=== PATIENT | female | born 1995 | race Caucasian/White ===

== ENCOUNTER 2018-10-06 20:37 | Emergency (ER) | payer OTHER ==
[2018-10-06] MEDS ORDERED: SODIUM CHLORIDE 0.9% 500 ML 500 ML IV STA (23:28)
[2018-10-06] MEDS ORDERED: KETOROLAC 30 MG/ML 1 ML VIAL IVP STA (23:28)
[2018-10-06] MEDS ORDERED: ONDANSETRON 4 MG/2 ML VIAL IVP STA (23:28)
[2018-10-06 23:47] LABS: Basophils % (A) 0 %; Eosinophils # (A) 0.2 k/uL (0-0.7); Eosinophils % (A) 2 %; HCT 44.7 % (34.0-46.0); HGB 15.5 gm/dL (11.4-16.0); Lymphocytes # (A) 2.2 k/uL (1.0-4.8); Lymphocytes % (A) 23 %; MCH 31.5 pg (25.0-35.0); MCHC 34.7 g/dL (31.0-37.0); MCV 90.8 fL (80.0-100.0); Mean Platelet Volume 8.1; Monocytes # (A) 0.5 k/uL (0-1.0); Monocytes % (A) 6 %; Neutrophils # (A) 6.1 k/uL (1.3-7.7); Neutrophils % (A) 66 %; Platelet Count 170 k/uL (150-450); RBC 4.92 m/uL (3.80-5.40); RDW 12.4 % (11.5-15.5); WBC 9.2 k/uL (3.8-10.6)
[2018-10-06 23:50] LABS: Appearance,Urine Cloudy (Clear); Bilirubin,Urine Negative (Negative); Blood,Urine Negative (Negative); Color,Urine Yellow; Glucose,Urine (UA) Negative (Negative); Ketones,Urine Negative (Negative); Leukocyte Esterase,Urine Large (Negative); Mucus,Urine Moderate /hpf; Nitrite,Urine Negative (Negative); Protein,Urine Trace (Negative); RBC,Urine 2 /hpf (0-5); Specific Gravity,Urine 1.027 (1.001-1.035); Squamous Epithelial Cell,Urine 6 /hpf (0-4); WBC,Urine 34 /hpf (0-5)
--- NOTE | 2018-10-06 23:52 | ED ---
Abdominal Pain HPI - General Chief Complaint: Abdominal Pain Stated Complaint: abd pain Time Seen by Provider: 10/06/18 23:18 Source: patient, RN notes reviewed, old records reviewed Mode of arrival: ambulatory Limitations: no limitations - History of Present Illness Initial Comments: Patient is a 23 year old female, with CC of abdominal pain. Patient states she has been unable to have a bowel movement for the last 5 days. She has been vomiting every time she eats. She complains of lower abdominal pain. - Related Data Home Medications Medication Instructions Recorded Confirmed Aspirin EC [Ecotrin] 325 mg PO DAILY PRN 10/06/18 10/06/18 Bismuth Subsalicylate 262 mg PO QID PRN 10/06/18 10/06/18 [Pepto-Bismol] Calcium Carbonate [Tums] 500 mg PO BID PRN 10/06/18 10/06/18 Previous Rx's Medication Instructions Recorded Famotidine [Pepcid] 20 mg PO BID #20 tablet 10/07/18 Nitrofurantoin Monohyd/M-Cryst 100 mg PO Q12HR #14 cap 10/07/18 [Macrobid] Ondansetron Odt [Zofran Odt] 4 mg PO Q8HR PRN #12 tab 10/07/18 Allergies Allergy/AdvReac Type Severity Reaction Status Date / Time No Known Allergies Allergy Verified 10/06/18 23:18 Review of Systems ROS Statement: Those systems with pertinent positive or pertinent negative responses have been documented in the HPI. ROS Other: All systems not noted in ROS Statement are negative. Past Medical History Past Medical History: No Reported History History of Any Multi-Drug Resistant Organisms: None Reported Past Surgical History: Orthopedic Surgery Additional Past Surgical History / Comment(s): Patient had surgery on her right leg after breaking this in first grade. Past Anesthesia/Blood Transfusion Reactions: No Reported Reaction Past Psychological History: No Psychological Hx Reported Smoking Status: Current every day smoker Past Alcohol Use History: None Reported Past Drug Use History: None Reported - Past Family History Mother Family Medical History: Hypertension General Exam - General Exam Comments Initial Comments: Well appearing 23 year old female, no distress. Limitations: no limitations General appearance: alert, in no apparent distress Head exam: Present: atraumatic, normocephalic, normal inspection Eye exam: Present: normal appearance, PERRL, EOMI. Absent: scleral icterus, conjunctival injection, periorbital swelling ENT exam: Present: normal exam, mucous membranes moist Neck exam: Present: normal inspection. Absent: tenderness, meningismus, lymphadenopathy Respiratory exam: Present: normal lung sounds bilaterally. Absent: respiratory distress, wheezes, rales, rhonchi, stridor Cardiovascular Exam: Present: regular rate, normal rhythm, normal heart sounds. Absent: systolic murmur, diastolic murmur, rubs, gallop, clicks GI/Abdominal exam: Present: soft, tenderness (LLQ suprapubic tenderness. ), normal bowel sounds. Absent: distended, guarding, rebound, rigid Extremities exam: Present: normal inspection, full ROM, normal capillary refill. Absent: tenderness, pedal edema, joint swelling, calf tenderness Back exam: Present: normal inspection Neurological exam: Present: alert, oriented X3, CN II-XII intact Psychiatric exam: Present: normal affect, normal mood Course Vital Signs 10/06/18 10/06/18 10/07/18 20:57 23:50 00:48 Temperature 98.3 F 98.4 F Pulse Rate 69 69 72 Respiratory 20 18 16 Rate Blood Pressure 124/79 121/74 120/90 O2 Sat by Pulse 100 100 100 Oximetry Medical Decision Making - Medical Decision Making 23 year old female with vomiting, constipation for 5 days. She has suprapubic tenderness. Labs obtained, and KUB was reviewed. Labs were unermarkable. She does have evidence of UTI. No signs of obstruction. Patient feels better after IV fluids. Will DC with abx for UTI, pepcid and zofran for gastritis. Also given mag citrate to take come to promote bowel movement. Discussed close follow up with PCP. - Lab Data Result diagrams: 10/06/18 23:38 10/06/18 23:38 Lab Results 10/06/18 10/06/18 10/06/18 Range/Units 23:38 23:38 23:38 WBC (3.8-10.6) k/uL RBC (3.80-5.40) m/uL Hgb (11.4-16.0) gm/dL Hct (34.0-46.0) % MCV (80.0-100.0) fL MCH (25.0-35.0) pg MCHC (31.0-37.0) g/dL RDW (11.5-15.5) % Plt Count (150-450) k/uL Neutrophils % % Lymphocytes % % Monocytes % % Eosinophils % % Basophils % % Neutrophils # (1.3-7.7) k/uL Lymphocytes # (1.0-4.8) k/uL Monocytes # (0-1.0) k/uL Eosinophils # (0-0.7) k/uL Basophils # (0-0.2) k/uL PT (9.0-12.0) sec INR (<1.2) APTT (22.0-30.0) sec Sodium 141 (137-145) mmol/L Potassium 4.0 (3.5-5.1) mmol/L Chloride 105 (98-107) mmol/L Carbon Dioxide 26 (22-30) mmol/L Anion Gap 10 mmol/L BUN 13 (7-17) mg/dL Creatinine 0.75 (0.52-1.04) mg/dL Est GFR (CKD-EPI)AfAm >90 (>60 ml/min/1.73 sqM) Est GFR (CKD-EPI)NonAf >90 (>60 ml/min/1.73 sqM) Glucose 82 (74-99) mg/dL Calcium 9.1 (8.4-10.2) mg/dL Total Bilirubin 1.0 (0.2-1.3) mg/dL AST 21 (14-36) U/L ALT 29 (9-52) U/L Alkaline Phosphatase 71 (38-126) U/L Total Protein 7.5 (6.3-8.2) g/dL Albumin 4.6 (3.5-5.0) g/dL Amylase 44 (30-110) U/L Lipase 55 (23-300) U/L Urine Color Yellow Urine Appearance Cloudy H (Clear) Urine pH 6.0 (5.0-8.0) Ur Specific [place] 1.027 (1.001-1.035) Urine Protein Trace H (Negative) Urine Glucose (UA) Negative (Negative) Urine Ketones Negative (Negative) Urine Blood Negative (Negative) Urine Nitrite Negative (Negative) Urine Bilirubin Negative (Negative) Urine Urobilinogen 3.0 (<2.0) mg/dL Ur Leukocyte Esterase Large H (Negative) Urine RBC 2 (0-5) /hpf Urine WBC 34 H (0-5) /hpf Ur Squamous Epith Cells 6 H (0-4) /hpf Urine Mucus Moderate H (None) /hpf Urine HCG, Qual Not Detected (Not Detectd) 10/06/18 10/06/18 Range/Units 23:38 23:38 WBC 9.2 (3.8-10.6) k/uL RBC 4.92 (3.80-5.40) m/uL Hgb 15.5 (11.4-16.0) gm/dL Hct 44.7 (34.0-46.0) % MCV 90.8 (80.0-100.0) fL MCH 31.5 (25.0-35.0) pg MCHC 34.7 (31.0-37.0) g/dL RDW 12.4 (11.5-15.5) % Plt Count 170 (150-450) k/uL Neutrophils % 66 % Lymphocytes % 23 % Monocytes % 6 % Eosinophils % 2 % Basophils % 0 % Neutrophils # 6.1 (1.3-7.7) k/uL Lymphocytes # 2.2 (1.0-4.8) k/uL Monocytes # 0.5 (0-1.0) k/uL Eosinophils # 0.2 (0-0.7) k/uL Basophils # 0.0 (0-0.2) k/uL PT 10.3 (9.0-12.0) sec INR 1.0 (<1.2) APTT 26.2 (22.0-30.0) sec Sodium (137-145) mmol/L Potassium (3.5-5.1) mmol/L Chloride (98-107) mmol/L Carbon Dioxide (22-30) mmol/L Anion Gap mmol/L BUN (7-17) mg/dL Creatinine (0.52-1.04) mg/dL Est GFR (CKD-EPI)AfAm (>60 ml/min/1.73 sqM) Est GFR (CKD-EPI)NonAf (>60 ml/min/1.73 sqM) Glucose (74-99) mg/dL Calcium (8.4-10.2) mg/dL Total Bilirubin (0.2-1.3) mg/dL AST (14-36) U/L ALT (9-52) U/L Alkaline Phosphatase (38-126) U/L Total Protein (6.3-8.2) g/dL Albumin (3.5-5.0) g/dL Amylase (30-110) U/L Lipase (23-300) U/L Urine Color Urine Appearance (Clear) Urine pH (5.0-8.0) Ur Specific [place] (1.001-1.035) Urine Protein (Negative) Urine Glucose (UA) (Negative) Urine Ketones (Negative) Urine Blood (Negative) Urine Nitrite (Negative) Urine Bilirubin (Negative) Urine Urobilinogen (<2.0) mg/dL Ur Leukocyte Esterase (Negative) Urine RBC (0-5) /hpf Urine WBC (0-5) /hpf Ur Squamous Epith Cells (0-4) /hpf Urine Mucus (None) /hpf Urine HCG, Qual (Not Detectd) - Radiology Data Radiology results: report reviewed Normal KUB. No sign of obstruction. Disposition Clinical Impression: UTI (urinary tract infection), Gastritis Clinical Impression: (Ruled Out): Inflammatory bowel disease Disposition: HOME SELF-CARE Condition: Good Instructions: Urinary Tract Infection in Women (ED) Additional Instructions: Patient has to take antibiotics as prescribed. Follow-up with PCP. Clear liquid diet for 2 days. Return to emergency department if any alarming signs or symptoms occur. Prescriptions: Famotidine [Pepcid] 20 mg PO BID #20 tablet Nitrofurantoin Monohyd/M-Cryst [Macrobid] 100 mg PO Q12HR #14 cap Ondansetron Odt [Zofran Odt] 4 mg PO Q8HR PRN #12 tab PRN Reason: Nausea Is patient prescribed a controlled substance at d/c from ED?: No Referrals: None,Stated [Primary Care Provider] - 1-2 days Ni Balderrama MD [STAFF PHYSICIAN] - 1-2 days Time of Disposition: 00:22
[2018-10-06 23:56] LABS: ALT 29 U/L (9-52); AST 21 U/L (14-36); Albumin 4.6 g/dL (3.5-5.0); Alkaline Phosphatase 71 U/L (38-126); Amylase 44 U/L (30-110); Anion Gap 10 mmol/L; Blood Urea Nitrogen 13 mg/dL (7-17); Calcium 9.1 mg/dL (8.4-10.2); Carbon Dioxide 26 mmol/L (22-30); Chloride 105 mmol/L (98-107); Glucose 82 mg/dL (74-99); Lipase 55 U/L (23-300); Sodium 141 mmol/L (137-145); Total Protein 7.5 g/dL (6.3-8.2)
[2018-10-07 00:04] LABS: Partial Thromboplastin Time 26.2 sec (22.0-30.0); Prothrombin Time 10.3 sec (9.0-12.0)
--- NOTE | 2018-10-07 00:06 | XR ---
EXAMINATION TYPE: XR KUB DATE OF EXAM: 10/06/2018 COMPARISON: NONE HISTORY: Abdominal pain TECHNIQUE: 2 views FINDINGS: The lung bases are clear. Bowel gas pattern is normal. There is no sign of intestinal obstr uction or pneumoperitoneum. Fecal pattern is normal. There is no evidence of a mass. There are no pat hologic calcifications over the kidneys. IMPRESSION: Nonacute abdomen.
[2018-10-07] MEDS ORDERED: MAGNESIUM CITRATE 296 ML BOTTLE PO ONE (00:25)
[2018-10-07 00:49] VITALS: BP 120/90; PULSE 72; RESP 16; TEMP 98.4
== END 2018-10-07 00:48 | disposition home or self-care (01) ==
LOC: EC 20:37
DX: K29.70 Gastritis, unspecified, without bleeding (principal); N39.0 Urinary tract infection, site not specified; K59.00 Constipation, unspecified; F17.200 Nicotine dependence, unspecified, uncomplicated
CPT/HCPCS: 36415; 80053; 82150; 83690; 85025; 85610; 85730; 81001; 81025; 74018; 99284; 96374; 96375; J2405; J1885

== ENCOUNTER 2023-05-25 19:49 | Outpatient (CLI) | payer BC, OTHER ==
[2023-05-25 20:55] VITALS: BP 126/78; PULSE 87; RESP 16; TEMP 98.5
--- NOTE | 2023-05-26 07:02 | P.MSEPDOC ---
Presenting Problems - Arrival Data Date of Arrival on Unit: 05/25/23 Time of Arrival on Unit: 19:49 Mode of Transport: Wheelchair - Complaint OB-Reason for Admission/Chief Complaint: Other Comment: Pt presents to triage with complaints of. swelling in hands and face. Pt is DOM due to recently. moving to [place] from [place]. Pt did receive. prental care in [place] however has not been able. to find a provider due to being "high risk for GDM". per pt. Medical History - Information : 4 Para: 2 Term: 2 : 0 Abortions: Spontaneous or Elective: 1 Number of Living Children: 2 - Gestational Age Gestational Age by EMILE (wks/days): 38 Weeks and 0 Days - History Complications: GDM Review of Systems - Review of Systems Constitutional: No problems Breast: No problems ENT: No problems Cardiovascular: No problems Respiratory: No problems Gastrointestinal: No problems Genitourinary: No problems Musculoskeletal: No problems Neurological: No problems Skin: No problems Vital Signs - Temperature Temperature: 98.5 F Temperature Source: Oral - Pulse Pulse Oximetery Pulse Rate: 87 Pulse Assessment Method: Pulse Oximetry - Respirations Respiratory Rate: 16 Oxygen Delivery Method: Room Air O2 Sat by Pulse Oximetry: 98 - Blood Pressure Right Arm Blood Pressure: 126/78 Blood Pressure Mean: 94 Medical Screen Scoring - Cervical Exam Dilation (cm): 1 Effacement (%): 50 Station: -2 Membranes: Intact - Uterine Contractions Intensity: Mild Resting: Soft to palpation - Assessment - Baby A Baseline FHR: 135 Heart Rate - NICHD Category: Category I (Normal) NST: Reactive Physician Notification - Physician Notified Physician Notified Date: 05/25/23 Physician Notified Time: 20:25 Physician: Brayan Melara New Order Received: Yes - Notification Comment Comment: Report given to Dr. Melara regarding DOM. pt, reported on vs, G/P, GA, history of preeclampsia. with previous , GDM, reactive NST, cervical. exam, physical exam. Did previously have care in [place]. but has recently moved and has not been able to find. a provider in [place]. Orders to discharge home. Maternal Triage Index - Maternal Triage Index Presenting for scheduled procedure w/no complaint: No - Stat/Priority 1 Stat Priority 1: No - Urgent/Priority 2 Urgent Priority 2: No - Prompt/Priority 3 Prompt Priority 3: No - Non-Urgent/Priority 4 Non-Urgent Priority 4: Yes Criteria Met for Priority 4: Pt presents to triage with complaints of. swelling in hands and face. Pt is DOM due to recently. moving to [place] from [place]. Pt did receive. prental care in [place] however has not been able. to find a provider due to being "high risk for GDM". per pt. Disposition - Disposition OB Disposition: Discharge to home Discharge Date: 05/25/23 Discharge Time: 20:30 I agree with the RN Medical Screening Exam: Yes Case reviewed; plan agreed upon as documented in EMR&OBIX.: Yes Diagnosis: RELATED CONDITIONS, UNSPECIFIED, THIRD TRIMESTER (Patient presents to labor and delivery with complaints of swelling in her hands and feet. Apparently the swelling has been mild but she had concerns about preeclampsia. She is a 27-year-old 4 para 2 female 38 weeks gestation is had care in [place] however has not had care here. Blood pressures are normal 120s over 70s. heart tones are category 1. Patient's cervix is 1 cm and not thought to be of labor. This time there is no evidence of preeclampsia or gestational hypertension. Patient is not labor and there is no evidence of maternal or compromise. Patient was discharged home and given instructions to return if she had other concerns.)
== END 2023-05-25 20:30 | disposition home or self-care (01) ==
LOC: FBPOP 19:49
PROVIDERS: ATTEND Obstetrics & Gynecology
DX: O24.419 Gestational diabetes mellitus in pregnancy, unspecified control (principal); O99.333 Smoking (tobacco) complicating pregnancy, third trimester; F17.200 Nicotine dependence, unspecified, uncomplicated; Z3A.38 38 weeks gestation of pregnancy
CPT/HCPCS: 59025; 99213

== ENCOUNTER 2023-05-29 22:53 | Inpatient (IN) | payer BC, OTHER ==
[2023-05-29 23:16] LABS: Glucose,Whole Blood 85 mg/dL (70-110)
[2023-05-29 23:56] LABS: Protein/Creatinine Ratio,Urine 0.381
[2023-05-29 23:58] LABS: Appearance,Urine Clear (Clear); Bilirubin,Urine Negative (Negative); Blood,Urine Negative (Negative); Color,Urine Light Yellow; Glucose,Urine (UA) Negative (Negative); Ketones,Urine Negative (Negative); Leukocyte Esterase,Urine Large (Negative); Nitrite,Urine Negative (Negative); PH, Urine 6.5 (5.0-8.0); Protein,Urine Negative (Negative); RBC,Urine 4 /hpf (0-5); Specific Gravity,Urine 1.006 (1.001-1.035); Squamous Epithelial Cell,Urine 4 /hpf (0-4); Urobilinogen,Urine <2.0 mg/dL (<2.0); WBC,Urine 9 /hpf (0-5)
[2023-05-30 00:09] LABS: Amphetamine Screen,Urine Not Detected (NotDetected); Barbiturate Screen,Urine Not Detected (NotDetected); Benzodiazepines Screen,Urine Not Detected (NotDetected); Cocaine Screen,Urine Not Detected (NotDetected); Methadone Screen, Urine Not Detected (NotDetected); Opiate Screen,Urine Not Detected (NotDetected); Oxycodone Screen, Urine Not Detected (NotDetected); Phencyclidine Screen,Urine Not Detected (NotDetected); Tricyclic Antidepressant,Urine Not Detected (NotDetected); Urn Cannabinoid Scrn Not Detected (NotDetected)
[2023-05-30] MEDS ORDERED: CARBOPROST TROMETHAMINE 250 MCG/ML 1 ML AMP IM PRN ×2 (00:11→07:20)
[2023-05-30] MEDS ORDERED: TRANEXAMIC 1,000 MG/100ML-NACL 1,000 MG in EMPTY BAG 1 BAG IV PRN ×2 (00:11→07:20)
[2023-05-30] MEDS ORDERED: miSOPROStoL 200 MCG TAB PO PRN ×2 (00:11→07:20)
[2023-05-30] MEDS ORDERED: METHYLERGONOVINE 0.2 MG/ML 1 ML AMP IM PRN ×2 (00:11→07:20)
[2023-05-30] MEDS ORDERED: AMPICILLIN 2,000 MG in SODIUM CHLORIDE 0.9% 100 ML IVPB STA (00:11)
[2023-05-30] MEDS ORDERED: OXYTOCIN 10 UNIT/ML 1 ML VIAL IM PRN ×2 (00:11→07:20)
[2023-05-30] MEDS ORDERED: TERBUTALINE 1 MG/ML VIAL SQ PRN (00:11)
[2023-05-30] MEDS ORDERED: LIDOCAINE 0.5% (PF) 5 MG/ML (50 ML SDV) SQ PRN (00:11)
[2023-05-30] MEDS ORDERED: OXYTOCIN 30 UNITS/500 ML NS 30 UNIT in SALINE 1 500ML.BAG IV SCH ×2 (00:15→08:45)
--- NOTE | 2023-05-30 00:21 | P.HPOB ---
History of Present Illness H&P Date: 05/30/23 Chief Complaint: Headache, no care This patient is a 27 4 para 2 female estimated date of confinement 06/08/2023 estimated gestational age 38-4/7 weeks per patient report who presents to [facility] labor and delivery with complaints of headache. Patient's history is such that she's had no care here reports that she moved from [place] sometime in March. She states that she did see somebody [facility] for care however she is uncertain if she had an anatomy ultrasound. Patient states that she failed her glucose test however is had no treatment or monitoring. She is not gotten any care since moving from [place]. Past obstetrical history is unremarkable she's had 2 term vaginal deliveries. Review of the record shows that she delivered her last baby here in 2014 and was complicated by late to seek care. Admission here patient's blood pressure is elevated. Cervix is 2-3 cm dilated but thick with irregular contractions. Also reviewed the record shows a history of positive group B strep with her last . Review of Systems Constitutional: Reports as per HPI Genitourinary: Reports as per HPI, Reports Menstruation: Reports amenorrhea Past Medical History Past Medical History: No Reported History History of Any Multi-Drug Resistant Organisms: None Reported Past Surgical History: Orthopedic Surgery Additional Past Surgical History / Comment(s): Patient had surgery on her right leg after breaking this in first grade. Past Anesthesia/Blood Transfusion Reactions: No Reported Reaction Smoking Status: Current every day smoker Past Alcohol Use History: None Reported Past Drug Use History: None Reported - Past Family History Mother Family Medical History: Hypertension Medications and Allergies Home Medications Medication Instructions Recorded Confirmed Type Vit No.179/Iron/Folic 1 tab PO DAILY 05/25/23 05/29/23 History [ Tablet] Allergies Allergy/AdvReac Type Severity Reaction Status Date / Time No Known Allergies Allergy Verified 10/06/18 23:18 Exam Intake and Output 05/29/23 05/29/23 05/30/23 14:59 22:59 06:59 Other: Weight 80.286 kg - OBG Physical Exam Abdomen: bowel sounds normal, no diffuse tenderness, no bruit present, no guarding noted, no hepatomegaly, no splenomegaly, no mass Vulva: both: normal Vagina: normal moisture, no discharge Cervix: no lesion (2-3 cm soft but thick.), no discharge Uterus: enlarged (Consistent with term .) Results No records are available. Review of previous records so she is B+ and has a history of positive group B strep Abnormal Lab Results - Last 24 Hours (Table) 05/29/23 05/29/23 Range/Units 23:30 23:30 Ur Leukocyte Esterase Large H (Negative) Urine WBC 9 H (0-5) /hpf U Random Total Protein 16 H (<12) mg/dL Assessment and Plan Assessment: This is a 27-year-old 4 para 2 female 38-1/2 weeks gestation admitted to labor and delivery with gestational hypertension, rule out preeclampsia. Patient's had no care for quite a time and has moved from a different state. heart tones are category 1 at this time. I explained to the patient's that she has gestational hypertension and a favorable cervix we'll plan to proceed for delivery at this time by induction of labor. She is agreeable to this plan. We'll check preeclampsia labs, blood work, toxicology screen, and give her antibiotics due to history of group B strep in a previous and unknown history of this . This point we anticipate vaginal delivery. (1) 38 weeks gestation of Current Visit: Yes Status: Acute Code(s): Z3A.38 - 38 WEEKS GESTATION OF SNOMED Code(s): 82386198 (2) Gestational hypertension Current Visit: Yes Status: Acute Code(s): O13.9 - GESTATIONAL HTN W/O SIGNIFICANT PROTEINURIA, UNSP TRIMESTER SNOMED Code(s): 04022551 (3) No care in current in third trimester Current Visit: Yes Status: Acute Code(s): O09.33 - SUPRVSN OF PREG W INSUFFICIENT ANTENAT CARE, THIRD TRIMESTER SNOMED Code(s): 172220210 (4) Carrier of group B Streptococcus Current Visit: No Status: Acute Code(s): Z22.330 - CARRIER OF GROUP B STREPTOCOCCUS SNOMED Code(s): 113574735
[2023-05-30 00:31] LABS: Basophils % (A) 0 %; Eosinophils # (A) 0.1 k/uL (0-0.7); Eosinophils % (A) 1 %; HCT 34.9 % (34.0-46.0); HGB 11.9 gm/dL (11.4-16.0); Lymphocytes # (A) 1.9 k/uL (1.0-4.8); Lymphocytes % (A) 14 %; MCH 28.9 pg (25.0-35.0); MCV 84.8 fL (80.0-100.0); Mean Platelet Volume 10.3; Monocytes # (A) 0.7 k/uL (0-1.0); Monocytes % (A) 5 %; Neutrophils # (A) 10.2 k/uL (1.3-7.7); Neutrophils % (A) 77 %; Platelet Count 164 k/uL (150-450); Poikilocytosis Slight; RBC 4.11 m/uL (3.80-5.40); WBC 13.2 k/uL (3.8-10.6)
[2023-05-30 00:41] LABS: ALT 10 U/L (4-34); AST 18 U/L (14-36); African American GFR (CKD) >90 (>60 ml/min/1.73 sqM); Blood Urea Nitrogen 7 mg/dL (7-17); Glucose 80 mg/dL (74-99); LDH 217 U/L (120-246); Magnesium 1.6 mg/dL (1.6-2.3); Non-African American GFR(CKD) >90 (>60 ml/min/1.73 sqM); Uric Acid 4.8 mg/dL (3.7-7.4)
[2023-05-30] MEDS: LACTATED RINGERS 1,000 ML IV SCH ×4 (00:47→15:35)
[2023-05-30 02:26] LABS: INR 0.9 (<1.2); Prothrombin Time 9.3 sec (9.0-12.0)
[2023-05-30] MEDS ORDERED: NALBUPHINE 10 MG/ML (10 ML MDV) IV PRN (03:14)
[2023-05-30] MEDS: AMPICILLIN 1,000 MG in SODIUM CHLORIDE 0.9% 50 ML IVPB SCH ×2 (04:34→10:36)
[2023-05-30] MEDS ORDERED: ROPIVACAINE 5 MG/ML 30 ML VIAL ONE (06:35)
[2023-05-30] MEDS ORDERED: SODIUM CHLORIDE 0.9% 250 ML BAG ONE (06:35)
[2023-05-30] MEDS ORDERED: fentaNYL (PF) 50 MCG/ML 5 ML AMP ONE (06:35)
[2023-05-30] MEDS ORDERED: CITRIC ACID-SODIUM CITRATE 15 ML CUP PO ONE (07:20)
[2023-05-30] MEDS ORDERED: KETOROLAC 15 MG/ML 1 ML VIAL ONE (07:33)
[2023-05-30] MEDS ORDERED: ceFAZolin 1,000 MG VIAL ONE (07:33)
[2023-05-30] MEDS ORDERED: OXYTOCIN 10 UNIT/ML 1 ML VIAL ONE (07:33)
[2023-05-30] MEDS ORDERED: MORPHINE SULFATE (PF) 0.3 MG/0.3 ML SYR ONE (07:33)
[2023-05-30] MEDS ORDERED: PHENYLEPHRINE-0.9% NACL SYG 1,000 MCG/10 ML SYRINGE ONE (07:33)
[2023-05-30] MEDS ORDERED: ONDANSETRON 4 MG/2 ML VIAL ONE (07:33)
[2023-05-30] MEDS ORDERED: ONDANSETRON 4 MG/2 ML VIAL IVP PRN (08:38)
[2023-05-30] MEDS ORDERED: diphenhydrAMINE 50 MG/ML 1 ML VIAL IVP PRN (08:38)
[2023-05-30] MEDS ORDERED: LANOLIN CREAM 5 GM TUBE TOPICAL PRN (08:38)
[2023-05-30] MEDS ORDERED: diphenhydrAMINE 25 MG CAP PO PRN (08:38)
[2023-05-30] MEDS ORDERED: ZOLPIDEM 5 MG TAB PO PRN (08:38)
[2023-05-30] MEDS ORDERED: NALOXONE 0.4 MG/ML 1 ML VIAL IV PRN (08:38)
[2023-05-30] MEDS ORDERED: METOCLOPRAMIDE 5 MG/ML 2 ML VIAL IVP PRN (08:38)
[2023-05-30] MEDS ORDERED: SIMETHICONE 80 MG CHEWABLE PO PRN (08:38)
--- NOTE | 2023-05-30 08:57 | P.OP ---
Date of Procedure: 05/30/23 Preoperative Diagnosis: #1: 38-4/7 week intrauterine . #2: Gestational hypertension. #3: Gestational diabetes. #4: No care. #5: Nonreassuring heart tones remote from delivery Postoperative Diagnosis: Same Procedure(s) Performed: Primary low transverse section Anesthesia: epidural Surgeon: Brayan Melara Complaint Evaluation Supervisor #1: Jacques Suárez Estimated Blood Loss (ml): 600 Pathology: other (Placenta) Condition: stable Disposition: floor Indications for Procedure: Please see dictated H&P for intimate details of this patient's admission, in brief summary this is a 27-year-old 4 para 2 female 38-4/7 weeks gestation admitted to labor and delivery with complaints of a headache and swelling. Patient's had no care here she did move from another state. Patient states that she has gestational diabetes and a history of gestational hypertension. She unfortunately has been noncompliant with taking aspirin daily and has not been checking her blood sugars. I've admission patient's blood pressures are elevated significantly enough to meet criteria for delivery. Preeclampsia labs were negative with the exception of elevated PC ratio. I discussed with the patient and her and recommended proceed with induction of labor. Patient's 2-3 cm dilated has artificial rupture membranes for clear fluid. Patient progresses but does have some variable decelerations from time to time. As the patient gets further in her labor unfortunately begins having repetitive deep variable decelerations and an episode of bradycardia in the 80s for approximately 3 minutes. Category II FHT managed following algorithm including initiation of corrective measure [position changes, discontinuing Pitocin, and oxygen]. With the persistent presence of nonreassuring heart tones, a patient-centered huddle was held and the need for an expedited deliver was discussed with the patient. It is our clinical recommendation to proceed with the delivery and after questions were answered to the patient agrees to proceed with the recommended plan. Patient understands this surgery and risks and risks of infection, bleeding, possible injury bowel, bladder, vessels, and/or other organs. All the patient's qu estions are answered and a written consent is obtained. Operative Findings: This is a vigorous viable male Apgars were 9 and 9 delivery time was 0749 hours. grossly appeared normal. The uterus, tubes, ovaries appeared normal as well. Description of Procedure: This patient has a Bender catheter placed to straight drain. She is subsequently taken to the operating room with epidural is dosed up for sufficient level of surgery. She has abdominal prep and drape. After the appropriate timeout, scalpel is taken and a Pfannenstiel skin incision is made. A second scalpel is taken down the fascia and the fascia scored with a knife. Fascial incision extended bilaterally using the Greer scissors. Fascia is then dissected off the rectus muscles sharply. Rectus muscles are the peritoneum was identified and entered sharply. Peritoneal incision extended superior and inferior without difficulty. Bladder blade is then placed. Bladder peritoneum was taken sharply off the lower uterine segment. Scalpels and taken a low transverse uterine incision is then made. I enter the uterine cavity bluntly. There is loss of clear fluid. Incision is extended bluntly and the 's head was guided through the incision with fundal pressure. Mouth and nares are bulb suctioned. There is no evidence of a nuchal cord. With more fundal pressure delivered and rest this infant's body. This is a vigorous viable male Apgars are 9 and 9 delivery time was 0749 hours. After delivery of the the umbilical cord is doubly clamped and cut appears to be trivascular. The placenta is then manually extracted intact. Uterus is externalized uterine incision demarcated with Feldman clamps. Uterine incision then closed using 0 Vicryl running locked fashion 2 layers. Excellent hemostasis is noted. There is one area in the middle of the incision requires a [id number] stitch but this is made hemostatic. Bladder peritoneum was then reapproximated using a 3-0 Vicryl running fashion. With this done excess fluid is removed from the abdomen and pelvis. The uterus, tubes, ovaries appear normal for term gestation. Uterus placed back into the abdomen. I did inspect the uterine incision this time there is some area of oozing on the left side therefore some surgical snow placed with excellent results. Good hemostasis is noted. The parietal peritoneum was then closed using 0 Vicryl running fashion. Rectus muscles are reapproximated in 0 Vicryl interrupted fashion. Fascial incision is then closed using 0 PDS running fashion. Fascial incision is intact and hemostatic. Subcutaneous tissues and closed using a 3-0 Vicryl. Skin is and closed using rajinder. Sterile dressing is applied. All counts are correct 3. There are no complications. Infant and mother taken the birthing suite in satisfactory condition.
--- NOTE | 2023-05-30 09:15 | P.MSEPDOC ---
Presenting Problems - Arrival Data Date of Arrival on Unit: 05/30/23 Time of Arrival on Unit: 22:53 Mode of Transport: Bed - Complaint OB-Reason for Admission/Chief Complaint: Headache, Elevated Blood Pressure Comment: Patient presents to triage for elevated blood pressures at home and headache. Medical History - Information : 4 Para: 2 Term: 2 : 0 Abortions: Spontaneous or Elective: 1 Number of Living Children: 2 - Gestational Age Gestational Age by EMILE (wks/days): 38 Weeks and 5 Days - History Complications: Preeclampsia, GDM Review of Systems - Review of Systems Constitutional: No problems Breast: No problems ENT: No problems Cardiovascular: No problems Respiratory: No problems Gastrointestinal: No problems Genitourinary: No problems Musculoskeletal: No problems Neurological: No problems Skin: No problems Vital Signs - Temperature Temperature: 96.1 F Temperature Source: Temporal Artery Scan - Pulse Pulse Oximetery Pulse Rate: 79 Pulse Assessment Method: Pulse Oximetry - Respirations Respiratory Rate: 20 Oxygen Delivery Method: Room Air O2 Sat by Pulse Oximetry: 97 - Blood Pressure Right Arm Blood Pressure: 113/60 Blood Pressure Mean: 77 Blood Pressure Source: Automatic Cuff Medical Screen Scoring - Assessment - Baby A Baseline FHR: 132 Heart Rate - NICHD Category: Category I (Normal) NST: Reactive Physician Notification - Physician Notified Physician Notified Date: 05/30/23 Physician Notified Time: 23:19 New Order Received: Yes - Notification Comment Comment: admit for labor Maternal Triage Index - Maternal Triage Index Presenting for scheduled procedure w/no complaint: No - Stat/Priority 1 Stat Priority 1: Yes Provider Notified: Brayan Melara Provider Notified Time: 23:19 Criteria Met for Priority 1: yes Disposition - Disposition OB Disposition: Admit I agree with the RN Medical Screening Exam: Yes Case reviewed; plan agreed upon as documented in EMR&OBIX.: Yes Diagnosis: GESTATIONAL HTN W/O SIGNIFICANT PROTEINURIA, THIRD TRIMESTER (Plan is admission for delivery secondary to gestational hypertension)
[2023-05-30 11:58] LABS: Hepatitis B Surface Antigen Nonreactive
[2023-05-30] MEDS: ACETAMINOPHEN TAB 500 MG TAB PO SCH ×2 (11:58→18:18)
[2023-05-30] MEDS: IBUPROFEN 600 MG TAB PO SCH ×2 (15:29→21:09)
[2023-05-30] MEDS: KETOROLAC 15 MG/ML 1 ML VIAL IVP SCH (18:37)
[2023-05-30] MEDS: SENNOSIDES-DOCUSATE SODIUM 1 EACH TAB PO SCH (21:10)
[2023-05-31] MEDS: ACETAMINOPHEN TAB 500 MG TAB PO SCH ×5 (00:07→22:00)
[2023-05-31] MEDS: LACTATED RINGERS 1,000 ML IV SCH (02:29)
[2023-05-31] MEDS: IBUPROFEN 600 MG TAB PO SCH ×4 (02:32→18:09)
[2023-05-31 06:31] LABS: Basophils % (A) 0 %; Eosinophils # (A) 0.1 k/uL (0-0.7); Eosinophils % (A) 1 %; HGB 10.2 gm/dL (11.4-16.0); Hypochromasia Slight; Lymphocytes % (A) 17 %; MCH 29.2 pg (25.0-35.0); MCHC 33.8 g/dL (31.0-37.0); MCV 86.2 fL (80.0-100.0); Mean Platelet Volume 10.2; Monocytes # (A) 0.8 k/uL (0-1.0); Monocytes % (A) 7 %; Neutrophils # (A) 8.4 k/uL (1.3-7.7); Neutrophils % (A) 72 %; Platelet Count 158 k/uL (150-450); Poikilocytosis Slight; RBC 3.48 m/uL (3.80-5.40); WBC 11.7 k/uL (3.8-10.6)
[2023-05-31] MEDS: KETOROLAC 15 MG/ML 1 ML VIAL IVP SCH ×2 (06:49)
--- NOTE | 2023-05-31 06:58 | P.PNOBGPC ---
Subjective - Subjective Patient reports: Reports appetite normal, Reports voiding normally, Reports pain well controlled, Reports ambulating normally : doing well Objective - Vital Signs Latest vital signs: Vital Signs Temp Pulse Resp BP Pulse Ox 05/31/23 04:00 98.4 F 86 16 118/80 100 05/31/23 00:01 99.2 F 78 18 133/83 100 05/30/23 19:41 98.5 F 83 18 130/83 100 05/30/23 16:00 98 F 72 18 137/84 05/30/23 12:00 97.3 F L 77 18 133/87 05/30/23 10:26 75 18 121/65 99 05/30/23 09:56 64 20 132/77 99 05/30/23 09:26 76 18 112/63 96 05/30/23 09:15 96.1 F L 79 20 113/60 97 05/30/23 09:11 79 20 113/60 97 05/30/23 08:56 72 18 105/57 98 05/30/23 08:41 66 18 90/43 98 05/30/23 08:26 96.1 F L 67 18 83/43 98 Intake and Output 05/30/23 05/30/23 05/31/23 14:59 22:59 06:59 Intake Total 14.133 1000 Output Total 652 1275 550 Balance -637.867 -1275 450 Intake: IV 1000 Invasive Line 1 1000 Intake, IV Titration 14.133 Amount Oxytocin 30 Units/500 ml 14.133 Ns 30 unit In Saline 1 500ml.bag @ Per Protocol IV .Q0M [facility] Rx#:[id number] Output: Urine 200 1275 550 Uretheral (Bender) 1275 Estimated Blood Loss 100 Output, Quantitative 352 Blood Loss Other: Voiding Method Indwelling Catheter Indwelling Catheter # Voids 1 - Exam Lungs: bilateral: normal Chest: Normal S1, Normal S2 Extremities: Present: normal Abdomen: Present: normal appearance, soft. Absent: distention, tenderness Incision: Present: normal, dry, intact Uterus: Present: normal, firm - Labs Labs: Abnormal Lab Results - Last 24 Hours (Table) 05/29/23 05/31/23 Range/Units 00:21 05:56 WBC 11.7 H (3.8-10.6) k/uL RBC 3.48 L (3.80-5.40) m/uL Hgb 10.2 L (11.4-16.0) gm/dL Hct 30.0 L (34.0-46.0) % Neutrophils # 8.4 H (1.3-7.7) k/uL Rubella IgG Antibody 81.80 H (0.00-9.00) IU/mL Assessment and Plan Assessment: Postoperative day #1. Patient is resting without complaints. Vital signs are stable she's afebrile. Uterus is firm nontender she's having normal lochia. Incision is intact and dry. CBC looks normal for postop day #1. I impression is a normal postoperative course. Plan today is allow the patient shower, encourage ambulation, and continue routine postoperative care. (1) 38 weeks gestation of Current Visit: Yes Status: Acute Code(s): Z3A.38 - 38 WEEKS GESTATION OF SNOMED Code(s): 41201402 (2) Gestational hypertension Current Visit: Yes Status: Acute Code(s): O13.9 - GESTATIONAL HTN W/O SIGNIFICANT PROTEINURIA, UNSP TRIMESTER SNOMED Code(s): 13665810 (3) No care in current in third trimester Current Visit: Yes Status: Acute Code(s): O09.33 - SUPRVSN OF PREG W INSUFFICIENT ANTENAT CARE, THIRD TRIMESTER SNOMED Code(s): 225426175 (4) Carrier of group B Streptococcus Current Visit: No Status: Acute Code(s): Z22.330 - CARRIER OF GROUP B STREPTOCOCCUS SNOMED Code(s): 406827529
[2023-05-31] MEDS: SENNOSIDES-DOCUSATE SODIUM 1 EACH TAB PO SCH ×2 (10:24→21:01)
--- NOTE | 2023-05-31 10:58 | P.PN ---
Progress Note - Text Date: 05/31/2023 Time: 07:42 The patient is status post section Vital signs stable VAS: 0-10. Patient has no complaints of pain. The patient incurred some minimal itching yesterday, this itching is now subsiding. Pain meds to be managed by service.
[2023-06-01] MEDS: IBUPROFEN 600 MG TAB PO SCH (03:01)
[2023-06-01] MEDS: ACETAMINOPHEN TAB 500 MG TAB PO SCH (04:57)
--- NOTE | 2023-06-01 06:40 | P.PNOBGPC ---
Subjective - Subjective Patient reports: Reports appetite normal, Reports voiding normally, Reports pain well controlled, Reports ambulating normally : doing well Objective - Vital Signs Latest vital signs: Vital Signs Temp Pulse Resp BP Pulse Ox 06/01/23 03:08 143/96 06/01/23 00:00 98.5 F 86 18 144/92 05/31/23 16:00 98.4 F 88 16 132/86 05/31/23 08:00 98.4 F 84 16 134/83 99 Intake and Output 05/31/23 05/31/23 06/01/23 14:59 22:59 06:59 Other: # Voids 1 1 - Exam Lungs: bilateral: normal Chest: Normal S1, Normal S2 Extremities: Present: normal Abdomen: Present: normal appearance, soft. Absent: distention, tenderness Incision: Present: normal, dry, intact Uterus: Present: normal, firm Assessment and Plan Assessment: Postoperative day #2. Patient is resting without new complaints and wishes to go home. Vital signs are stable, however her blood pressures are creeping up in the 140s over 90s. Uterus is firm nontender and her incision is intact and dry. Patient's ambulating, urinating, and tolerating regular diet. Plan today is to start her on 100 mg of labetalol and if her blood pressures remain the same she'll be stable for discharge home follow up with me in 1 week for a blood pressure check. (1) 38 weeks gestation of Current Visit: Yes Status: Acute Code(s): Z3A.38 - 38 WEEKS GESTATION OF SNOMED Code(s): 03891653 (2) Gestational hypertension Current Visit: Yes Status: Acute Code(s): O13.9 - GESTATIONAL HTN W/O SIGNIFICANT PROTEINURIA, UNSP TRIMESTER SNOMED Code(s): 01504571 (3) No care in current in third trimester Current Visit: Yes Status: Acute Code(s): O09.33 - SUPRVSN OF PREG W INSUFFICIENT ANTENAT CARE, THIRD TRIMESTER SNOMED Code(s): 813902648 (4) Carrier of group B Streptococcus Current Visit: No Status: Acute Code(s): Z22.330 - CARRIER OF GROUP B STREPTOCOCCUS SNOMED Code(s): 850427105
--- NOTE | 2023-06-01 06:46 | P.DS ---
Providers Date of admission: 05/30/23 00:02 Expected date of discharge: 06/01/23 Attending physician: Brayan Melara Primary care physician: Stated None - Discharge Diagnosis(es) (1) 38 weeks gestation of Current Visit: Yes Status: Acute (2) Gestational hypertension Current Visit: Yes Status: Acute (3) No care in current in third trimester Current Visit: Yes Status: Acute (4) Carrier of group B Streptococcus Current Visit: No Status: Acute Hospital Course: Please see dictated H&P for intimate details of this patient's admission. In brief summary this is a 27-year-old 4 para 2 female 38-4/7 weeks gestation admitted to labor and delivery with diagnosis of gestational hypertension, gestational diabetes, and no care. Patient subsequently on a primary low transverse section for nonreassuring heart tones. Please see dictated operative note. Postoperative day #2 patient was felt to be stable for discharge home. She was placed on labetalol 100 mg by mouth twice a day follow up with me in 1 week for a blood pressure check. Procedures: Primary low transverse section Patient Condition at Discharge: Good Plan - Discharge Summary New Discharge Prescriptions: New oxyCODONE HCL [OxyIR] 5 mg PO Q4HR PRN #18 tab PRN Reason: Pain Scale 4 - 6 Labetalol [Trandate] 100 mg PO BID #60 tab Ibuprofen [Motrin] 600 mg PO Q6H #40 tab No Action Vit No.179/Iron/Folic [ Tablet] 1 tab PO DAILY Discharge Medication List Vit No.179/Iron/Folic [ Tablet] 1 tab PO DAILY 05/25/23 [History] Ibuprofen [Motrin] 600 mg PO Q6H #40 tab 06/01/23 [Rx] Labetalol [Trandate] 100 mg PO BID #60 tab 06/01/23 [Rx] oxyCODONE HCL [OxyIR] 5 mg PO Q4HR PRN #18 tab 06/01/23 [Rx] Follow up Appointment(s)/Referral(s): Brayan Melara MD [STAFF PHYSICIAN] - 1 Week (Please see me in 1 week for an incision and blood pressure check. Also see me in 6 weeks for a visit) Patient Instructions/Handouts: (DC), Hypertension During (DC) Activity/Diet/Wound Care/Special Instructions: No heavy lifting or strenuous activity for 6 weeks. No intercourse or anything per vagina for 6 weeks. Please call if fever, chills, excessive vaginal bleeding, and/or abdominal pain Discharge Disposition: HOME SELF-CARE
[2023-06-01] MEDS ORDERED: LABETALOL 100 MG TAB PO SCH (07:00)
[2023-06-01 08:10] VITALS: BP 129/84; PULSE 103; RESP 16; TEMP 98.6
[2023-06-01 14:27] LABS: C. trachomatis,PCR Positive (Negative)
[2023-06-01 14:40] LABS: N. gonorrhoeae,PCR Negative (Negative)
[2023-06-01 16:51] LABS: HIV 2 AB Non-Reactive (Non-Reactive); HIV AB P24 Non-Reactive (Non-Reactive); HIV P24 AG Non-Reactive (Non-Reactive)
== END 2023-06-01 10:15 | disposition home or self-care (01) | DRG 540 ==
LOC: FBPOP 22:53 → 4FBP 05-30 00:02
PROVIDERS: ADMIT Obstetrics & Gynecology; ATTEND Obstetrics & Gynecology
PROC: 10907ZC Drainage of Amniotic Fluid, Therapeutic from Products of Conception, Via Natural or Artificial Opening (ICD-10-PCS; 2023-05-30)
PROC: 3E033VJ Introduction of Other Hormone into Peripheral Vein, Percutaneous Approach (ICD-10-PCS; 2023-05-30)
PROC: 4A0HXCZ Measurement of Products of Conception, Cardiac Rate, External Approach (ICD-10-PCS; 2023-05-30)
PROC: 10D00Z1 Extraction of Products of Conception, Low, Open Approach (ICD-10-PCS; principal; 2023-05-30 07:36)
DX: O13.4 Gestational [pregnancy-induced] hypertension without significant proteinuria, complicating childbirth (principal); O76 Abnormality in fetal heart rate and rhythm complicating labor and delivery; O99.73 Diseases of the skin and subcutaneous tissue complicating the puerperium; L29.9 Pruritus, unspecified; O24.429 Gestational diabetes mellitus in childbirth, unspecified control; O99.334 Smoking (tobacco) complicating childbirth; F17.210 Nicotine dependence, cigarettes, uncomplicated; Z3A.38 38 weeks gestation of pregnancy; O99.824 Streptococcus B carrier state complicating childbirth; Z37.0 Single live birth; Z79.82 Long term (current) use of aspirin; Z91.199 Patient's noncompliance with other medical treatment and regimen due to unspecified reason
CPT/HCPCS: 36415; 59025; 80306; 81001; 82565; 82570; 82947; 83615; 83735; 84156; 84450; 84460; 84520; 84550; 85025; 85610; 85730; 86762; 86780; 86850; 86900; 86901; 87340; 87390; 87491; 87591; 99215

== ENCOUNTER 2025-03-10 22:22 | Emergency (ER) | payer OTHER ==
[2025-03-10] MEDS: FLUORESCEIN STRIPS 1 MG STRIP RIGHT EYE ONE (22:39)
[2025-03-10] MEDS: PROPARACAINE 0.5% OPHTH DROPS 15 ML BTL RIGHT EYE STA (22:39)
--- NOTE | 2025-03-10 22:50 | ED ---
General Adult HPI - General Chief complaint: Eye Problems Stated complaint: Contact Stuck in R Eye Time Seen by Provider: 03/10/25 22:29 Source: patient, RN notes reviewed Mode of arrival: ambulatory - History of Present Illness Initial comments: 29-year-old female presents emergency room with complaints of right eye irritation. Patient states that she has been trialing to wear contacts and is concerned that the contact is stuck in her right eye she has been able to remove it. States that she feels a gritty type sensation in her right eye. Denies visual disturbances. Up-to-date on tetanus. - Related Data Home Medications Medication Instructions Recorded Confirmed Vit No.179/Iron/Folic 1 tab PO DAILY 05/25/23 05/29/23 [ Tablet] Previous Rx's Medication Instructions Recorded Ibuprofen [Motrin] 600 mg PO Q6H #40 tab 06/01/23 Labetalol [Trandate] 100 mg PO BID #60 tab 06/01/23 oxyCODONE HCL [OxyIR] 5 mg PO Q4HR PRN #18 tab 06/01/23 Allergies Allergy/AdvReac Type Severity Reaction Status Date / Time No Known Allergies Allergy Verified 03/10/25 22:25 Review of Systems ROS Statement: Those systems with pertinent positive or pertinent negative responses have been documented in the HPI. ROS Other: All systems not noted in ROS Statement are negative. Past Medical History Past Medical History: No Reported History History of Any Multi-Drug Resistant Organisms: None Reported Past Surgical History: Orthopedic Surgery Additional Past Surgical History / Comment(s): Patient had surgery on her right leg after breaking this in first grade. Past Anesthesia/Blood Transfusion Reactions: No Reported Reaction Past Psychological History: No Psychological Hx Reported Smoking Status: Current every day smoker Past Alcohol Use History: Occasional Past Drug Use History: None Reported - Past Family History Mother Family Medical History: Hypertension General Exam General appearance: alert, in no apparent distress Expanded Eyelids: Normal Inspection: Bilateral Pupils: Regular, Round: Bilateral, Reactive: Bilateral Sclera/Conjunctival: Foreign Body: Right (contact lens over the lateral portion of the eye) Neck exam: Present: normal inspection. Absent: tenderness, meningismus, lymphadenopathy Respiratory exam: Present: normal lung sounds bilaterally. Absent: respiratory distress, wheezes, rales, rhonchi, stridor Cardiovascular Exam: Present: regular rate, normal rhythm, normal heart sounds. Absent: systolic murmur, diastolic murmur, rubs, gallop, clicks Course Vital Signs 03/10/25 03/10/25 22:23 23:16 Temperature 99 F 98.6 F Pulse Rate 66 68 Respiratory 18 16 Rate Blood Pressure 148/95 120/79 O2 Sat by Pulse 100 100 Oximetry Medical Decision Making - Medical Decision Making Was pt. sent in by a medical professional or institution ([facility], [facility], urgent care, hospital, or residential...) When possible be specific @ -No Did you speak to anyone other than the patient for history (EMS, parent, family, police, friend...)? What history was obtained from this source @ -No Did you review nursing and triage notes (agree or disagree)? Why? @ -I reviewed and agree with nursing and triage notes Were old charts reviewed (outside hosp., previous admission, EMS record, old EKG, old radiological studies, urgent care reports/EKG's, residential records)? Report findings @ -No old charts were reviewed Differential Diagnosis (chest pain, altered mental status, abdominal pain women, abdominal pain men, vaginal bleeding, weakness, fever, dyspnea, syncope, headache, dizziness, GI bleed, back pain, seizure, CVA, palpatations, mental health, musculoskeletal)? @ -Foreign body in soft tissue of eye, corneal abrasion, corneal ulceration, this list is not all inclusive EKG interpreted by me (3pts min.). @ -None X-rays interpreted by me (1pt min.). @ -None done CT interpreted by me (1pt min.). @ -None done U/S interpreted by me (1pt. min.). @ -None done What testing was considered but not performed or refused? (CT, X-rays, U/S, labs)? Why? @ -None What meds were considered but not given or refused? Why? @ -None Did you discuss the management of the patient with other professionals (professionals i.e. [facility], [facility], lab, RT, psych nurse, social science research assistant, parts counter clerk, teacher, coastal/harbor defense officer, case folder)? Give summary @ -No Was smoking cessation discussed for >3mins.? @ -No Was critical care preformed (if so, how long)? @ -No Were there social determinants of health that impacted care today? How? (Homelessness, low income, unemployed, alcoholism, drug addiction, transportation, low edu. Level, literacy, decrease access to med. care, fci, rehab)? @ -No Was there de-escalation of care discussed even if they declined (Discuss DNR or withdrawal of care, Hospice)? DNR status @ -No What co-morbidities impacted this encounter? (DM, HTN, Smoking, COPD, CAD, Cancer, CVA, ARF, Chemo, Hep., AIDS, mental health diagnosis, sleep apnea, morbid obesity)? @ -None Was patient admitted / discharged? Hospital course, mention meds given and route, prescriptions, significant lab abnormalities, going to OR and other pertinent info. @ -Discharge. 29-year-old male presenting with right eye irritation. Contact lenses noted to the lateral eye and is removed. Fluorescein stain reveals mild corneal abrasion. Patient provided with topical antibiotic drops. Case discussed with Dr. Amaya Undiagnosed new problem with uncertain prognosis? @ -No Drug Therapy requiring intensive monitoring for toxicity (Heparin, Nitro, Insulin, Cardizem)? @ -No Were any procedures done? @ -No Diagnosis/symptom? @ -Contact removal, corneal abrasion Acute, or Chronic, or Acute on Chronic? @ -Acute Uncomplicated (without systemic symptoms) or Complicated (systemic symptoms)? @ -Uncomplicated Side effects of treatment? @ -No Exacerbation, Progression, or Severe Exacerbation? @ -No Poses a threat to life or bodily function? How? (Chest pain, [place], [place], pneumonia, PE, COPD, DKA, ARF, appy, cholecystitis, CVA, Diverticulitis, Homicidal, Suicidal, threat to staff... and all critical care pts) @ -No Disposition Clinical Impression: Corneal abrasion due to contact lens Disposition: HOME SELF-CARE Condition: Stable Instructions (If sedation given, give patient instructions): Corneal Abrasion (ED) Additional Instructions: Please return to the Emergency Department if symptoms worsen or any other concerns. Continue to use topical antibiotic drops in the affected eye: 2 drops every 6 hours for 5 days Is patient prescribed a controlled substance at d/c from ED?: No Referrals: None,Stated [Primary Care Provider] - 1-2 days Time of Disposition: 22:49
[2025-03-10] MEDS: TOBRAMYCIN 0.3% OPHTH OINT 3.5 GM TUBE RIGHT EYE STA (23:14)
[2025-03-10 23:21] VITALS: BP 120/79; PULSE 68; RESP 16; TEMP 98.6
== END 2025-03-10 23:16 | disposition home or self-care (01) ==
LOC: EC 22:22
DX: H18.829 Corneal disorder due to contact lens, unspecified eye (principal); F17.200 Nicotine dependence, unspecified, uncomplicated
CPT/HCPCS: 99283